=== PATIENT | male | born 1970 | race Hispanic/Latino ===

== ENCOUNTER 2024-06-19 08:40 | Emergency (ER) | payer OTHER ==
[~2024-06-19] VITALS: Ht 172.7 cm; Wt 77.1 kg
[2024-06-19 08:45] VITALS: BP 130/75; PULSE 89; RESP 18; TEMP 98.6
--- NOTE | 2024-06-19 09:26 | ERN ---
ED Note History of Present Illness Stated Complaint: LEG PAIN Chief Complaint: Lower Extremity Pain/Injury Time Seen by MD: 08:56 Dictation: 54-year-old male presents to the ED for evaluation right ankle pain onset SERGER. Patient reports right leg pain and left knee pain, but denies any other associated symptoms at this time. Patient states he was carrying heavy metal that is slipped off his hands and fell on his right foot and then states he was about to fall backwards and his left knee locked. No other medical or surgic al history mentioned. Allergies: Coded Allergies: No Known Drug Allergies (Unverified Allergy, Unknown, 06/19/24) Home Meds Active Scripts Naproxen (Naproxen) 250 Mg Tablet, 250 MG PO BID for 5 Days, #10 TAB Prov:AINSLEY RODRIGUEZ MD 06/19/24 Past Medical History Past Medical History: No Pertinent History Surgical History: None Review of System Dictation Constitutional: Negative for fever,chills, and weight loss Eyes: Negative for injury, pain,redness, and discharge ENT: Negative for injury,pain or swelling Cardiovascular: Negative for chest pain, palpitations, and edema Respiratory: Negative for shortness of breath, cough, and wheezing, Abdomen/GI: Negative for abdominal pain, nausea, vomiting, diarrhea, and constipation Back: Negative for injury and pain : Negative for injury, bleeding and discharge MS/Extremity: Right leg, right ankle pain, left knee pain Skin: Negative for rash, and discoloration Neuro: Negative for headache, weakness, numbness, tingling, and seizure Psych: Negative for suicide ideation, homicidal ideation, and hallucinations Initial Vital Sign VS Vital Signs Date Time Temp Pulse Resp B/P (MAP) Pulse Ox O2 Delivery O2 Flow Rate FiO2 06/19/24 08:45 98.6 89 18 130/75 98 Physical Exam Dictation General: awake, alert, NAD Head/Face: Normocephalic, atraumatic Eyes: PERRL, EOMI, vision at baseline ENT: oral cavity clear, TMs clear, no signs of infection Neck: Trachea midline, supple, no nuchal rigidity Cardiovascular: RRR, normal S1/S2, No MRGs, no JVD Respiratory: CTAB, no respiratory distress, No rales or wheezes Abdomen: Soft, non-tender, non-distended, normal bowel sounds, no guarding or rebound. Skin: Warm, dry, normal turgor, no rash MS/Extremity: Pulses equal, no cyanosis, neurovascular intact, FROM Neuro: COAx4, GCS 15, strength 5/5, CN 2-12 intact, normal cerebellar exam, normal gait, Psych: Normal behavior, mood, and affect normal Results (Laboratory/Radiology) X-RAY Comment: X-rays independently visualized by me REASON: INJURY ORDERING PHYSICIAN: AINSLEY RODRIGUEZ MD PROCEDURE: [id number] - ANKLE 2VWS RT ANKLE 2VWS RT REASON: INJURY TECHNIQUE: 2 views were obtained. FINDINGS: There is no evidence of fracture or dislocation. There is no joint effusion. The soft tissues appear unremarkable. There is no evidence of a radiopaque foreign body. IMPRESSION: No acute findings. REASON: INJURY ORDERING PHYSICIAN: AINSLEY RODRIGUEZ MD PROCEDURE: FT 2VW RT - FOOT LIMITED 2VWS RT FOOT LIMITED 2VWS RT REASON: INJURY TECHNIQUE: 2 views were obtained. FINDINGS: There is no evidence of fracture or dislocation. There is no joint effusion. The soft tissues appear unremarkable. There is no evidence of a radiopaque foreign body. IMPRESSION: No acute findings. DICTATED BY: ALANNA NOBLE MD DATE: 06/19/24 1009 REASON: INJURY 2 DAYS AGO ORDERING PHYSICIAN: AINSLEY RODRIGUEZ MD PROCEDURE: KNEE 3V LT - KNEE 3VWS LT KNEE 3VWS LT REASON: INJURY 2 DAYS AGO TECHNIQUE: 3 views were obtained. FINDINGS: There is moderate medial joint space osteophytes. Lateral and patellofemoral joint spaces appear preserved. There are no visible fractures. There is no joint effusion. IMPRESSION: 1. Moderate medial joint space on stress right is. 2. No acute finding. DICTATED BY: ALANNA NOBLE MD DATE: 06/19/24 1009 ED Course ED Course Orders Procedure Category Date Status Time Foot Limited 2vws Rt RAD 06/19/24 Resulted 09:08 Ankle 2vws Rt RAD 06/19/24 Resulted 09:08 Knee 3vws Lt RAD 06/19/24 Resulted 09:19 Vital Signs Date Time Temp Pulse Resp B/P (MAP) Pulse Ox O2 Delivery O2 Flow Rate FiO2 06/19/24 08:45 98.6 89 18 130/75 98 Medical Decision Making MDM MDM: Differential diagnosis: Ankle pain, knee pain, contusion Previous outside records reviewed: Old ER visits. Need for hospitalization: Patient does not meet criteria for hospitalization. Need for emergency major/minor surgery: No Patient's prior external medical records from other ER visits were reviewed by me as indicated. Prior testing and results from previous visits were reviewed. Prior tests were taken into account with medical decision making and resource utilization, independent historian/historians were used to obtain complete medical history. I independently interpreted the test that were performed, results were reviewed by me and considered findings on radiology if ordered. Medical management and examination interpretation discussions were had by me with other qualified healthcare professionals as indicated for the patient's care. DX & DISP Disposition: Discharge Departure Impression: Primary Impression: Contusion of right leg Condition: Stable Scripts Naproxen (Naproxen) 250 Mg Tablet 250 MG PO BID for 5 Days, #10 TAB Prov: AINSLEY RODRIGUEZ MD 06/19/24 I have reviewed, & agreed with my scribe's, documentation. (Entered by Oly Nieves, acting as a scribe for Dr. Rodriguez) I personally scribed for AINSLEY RODRIGUEZ MD ([email or web address]) on 06/19/24 at 09:26. Electronically submitted by Oly Nieves ([email or web address]). I personally scribed for AINSLEY RODRIGUEZ MD ([email or web address]) on 06/19/24 at 10:32. Electronically submitted by Oly Nieves ([email or web address]). AINSLEY RODRIGUEZ MD Jun 19, 2024 09:26
--- NOTE | 2024-06-19 10:12 | HMCIMG ---
FOOT LIMITED 2VWS RT REASON: INJURY TECHNIQUE: 2 views were obtained. FINDINGS: There is no evidence of fracture or dislocation. There is no joint effusion. The soft tissues appear unremarkable. There is no evidence of a radiopaque foreign body. IMPRESSION: No acute findings.
--- NOTE | 2024-06-19 10:12 | HMCIMG ---
KNEE 3VWS LT REASON: INJURY 2 DAYS AGO TECHNIQUE: 3 views were obtained. FINDINGS: There is moderate medial joint space osteophytes. Lateral and patellofemoral joint spaces appear preserved. There are no visible fractures. There is no joint effusion. IMPRESSION: 1. Moderate medial joint space on stress right is. 2. No acute finding.
[2024-06-19] MEDS ORDERED: NAPR-1196 PO (10:23)
== END 2024-06-19 10:42 | disposition home or self-care (01) ==
LOC: EDH 08:40
DX: S80.11XA Contusion of right lower leg, initial encounter (principal); W18.39XA Other fall on same level, initial encounter; Y93.89 Activity, other specified; Y92.89 Other specified places as the place of occurrence of the external cause; Y99.8 Other external cause status
CPT/HCPCS: 73562; 73600; 73620; 99284